=== PATIENT | female | born 1965 | race Caucasian/White ===

== ENCOUNTER 2019-12-24 14:30 | Emergency (ER) | payer OTHER, MEDICAID ==
[~2019-12-24] VITALS: Ht 172.7 cm; Wt 63.5 kg
[2019-12-24 14:37] VITALS: BP 126/91
--- NOTE | 2019-12-24 14:40 | NUR ---
PT AMBULATED TO ER BED 01
[2019-12-24] MEDS ORDERED: ONDANSETRON 4 MG ODT ONE (14:48)
--- NOTE | 2019-12-24 14:48 | NUR ---
ERMD AT BEDSIDE
[2019-12-24] MEDS: ONDANSETRON 4 MG ODT PO ONE (14:57)
--- NOTE | 2019-12-24 15:00 | NUR ---
C/O NUMBNESS THROUGHOUT ENTIRE BODY AND SOB. PT STATES SHE WENT TO A [employer] LAST NIGHT AND WAS DRINKING 4-5 "MIXED DRINKS". PT STATES SHE WOKE UP TODAY FEELING NUMB AND SOB. PT O2 SAT RA 100%, LUNG SOUNDS CAEBL, NO LABORED BREATHING OR ACCESORY MUSCLE USE NOTED. BUE/BLE STRENGTH EQUAL, NO FACIAL DROOP OR UNILATERAL WEAKNESS NOTED. INSTRUCTED PT CLOSE EYES & DEEP BREATHE TO EASE ANXIETY. 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 SIDE RAIL UP X1.
--- NOTE | 2019-12-24 15:08 | NUR ---
Shahla garza in [facility] - 12/24/19 at 1647 by [facility] AT [facility].
[2019-12-24] MEDS: LORazepam 2 MG/ML VIAL IM ONE (15:19)
[2019-12-24 15:43] VITALS: BP 126/91
== END 2019-12-24 15:43 | disposition home or self-care (01) ==
LOC: MED 14:30
DX: F41.9 Anxiety disorder, unspecified (principal); F12.10 Cannabis abuse, uncomplicated
CPT/HCPCS: 96372; 99283; J2060; Q0162